=== PATIENT | female | born 1965 | race Two or more races ===

== ENCOUNTER 2019-04-03 12:41 | Emergency (ER) | payer BC ==
[2019-04-03] MEDS ORDERED: ASPIRIN 81 MG TABLET, CHEWABLE PO ONE (13:24)
--- NOTE | 2019-04-03 13:26 | ER Document Report ---
ED Medical Screen (RME) - General Chief Complaint: Palpitations Stated Complaint: POSSIBLE HIGH BLOOD PRESSURE/SHAKING/CHILLS Time Seen by Provider: 04/03/19 13:19 Primary Care Provider: LIZ TYSON MD [Primary Care Provider] - Follow up as needed Mode of Arrival: Ambulatory Information source: Patient Notes: Patient states that she woke up several times with heart pounding sensation this morning. Patient does not describe the pounding sensation is painful. Patient denies dyspnea although states that she will occasionally have to take a deep sighing breaths. Patient also states that her blood pressure has been more elevated than normal and she measured a 147/90 blood pressure at home. Patient does acknowledge a history of a VSD with a heart murmur. Patient has currently been taking Wellbutrin for smoking cessation and is uncertain if her symptoms may be related to this medication. She has been on the Wellbutrin for 2 months now. I have greeted and performed a rapid initial assessment of this patient. A comprehensive ED assessment and evaluation of the patient, analysis of test results and completion of the medical decision making process will be conducted by additional ED providers. TRAVEL OUTSIDE OF THE [place] IN LAST 30 DAYS: No - Related Data Allergies/Adverse Reactions: Penicillins Allergy (Verified 04/03/19 13:18) Physical Exam - Vital signs Vitals: Temp Pulse Resp BP Pulse Ox 98.1 F 77 16 153/85 H 98 04/03/19 12:45 04/03/19 12:45 04/03/19 12:45 04/03/19 12:45 04/03/19 12:45 - Respiratory Respiratory status: No respiratory distress Chest status: Nontender - Cardiovascular Rhythm: Regular Heart sounds: S1 appreciated, S2 appreciated Murmur: Yes Course - Vital Signs Vital signs: Temp Pulse Resp BP Pulse Ox 98.1 F 77 16 153/85 H 98 04/03/19 12:45 04/03/19 12:45 04/03/19 12:45 04/03/19 12:45 04/03/19 12:45 Doctor's Discharge - Discharge Referrals: LIZ TYSON MD [Primary Care Provider] - Follow up as needed
[2019-04-03 13:53] LABS: ABSOLUTE EOSINOPHILS # (AUTO) 0.1 10^3/uL (0.0-0.6); ABSOLUTE LYMPHOCYTES (AUTO) 1.8 10^3/uL (0.5-4.7); ABSOLUTE MONOCYTES (AUTO) 0.4 10^3/uL (0.1-1.4); ABSOLUTE NEUT (AUTO) 3.4 10^3/uL (1.7-8.2); BASOPHILS % (AUTO) 0.7 % (0-2); EOSINOPHILS % (AUTO) 1.1 % (0-6); HEMATOCRIT 40.7 % (36.0-47.0); HEMOGLOBIN 13.9 g/dL (12.0-15.5); LYMPHOCYTES % (AUTO) 31.7 % (13-45); MEAN CORPUSCULAR HEMOGLOBIN 29.8 pg (27.0-33.4); MEAN CORPUSCULAR VOLUME 87 fl (80-97); MONOCYTES % (AUTO) 6.7 % (3-13); PLATELET COUNT 231 10^3/uL (150-450); RED BLOOD COUNT 4.65 10^6/uL (3.72-5.28); RED CELL DISTRIBUTION WIDTH 13.4 % (11.5-14.0); SEGMENTED NEUTROPHILS % (AUTO) 59.8 % (42-78); TOTAL CELLS COUNTED % (AUTO) 100 %; WHITE BLOOD COUNT 5.7 10^3/uL (4.0-10.5)
--- NOTE | 2019-04-03 14:09 | ER Document Report ---
ED General - General Chief Complaint: Palpitations Stated Complaint: POSSIBLE HIGH BLOOD PRESSURE/SHAKING/CHILLS Time Seen by Provider: 04/03/19 13:19 Primary Care Provider: LIZ TYSON MD [NO LOCAL MD] - Follow up as needed Mode of Arrival: Ambulatory Notes: 53-year-old female with history of VSD presents with palpitations and feelings like "I had to take a deep breath" that started this morning. Patient states that he felt like her heart was racing however she checked her heart rate and it was normal. Patient did check her blood pressure which was increased at 147/90 which she states is high for her. Associated chills patient denies any chest pain, shortness of breath, fever, abdominal pain, nausea/vomiting/diarrhea. Patient is followed by Dr. Benton at [facility] for her VSD and states it is "the size of a ballpoint pen." Patient states she had an echo done this past year and was told everything was "all right." Patient states she does not take any medications daily except for multivitamin and only surgical history is ablation of fibroids. TRAVEL OUTSIDE OF THE [place] IN LAST 30 DAYS: No - Related Data Allergies/Adverse Reactions: Penicillins Allergy (Verified 04/03/19 13:18) Past Medical History - General Information source: Patient - Social History Smoking Status: Current Every Day Smoker Family History: Reviewed & Not Pertinent Patient has suicidal ideation: No Patient has homicidal ideation: No Endocrine Medical History: Reports: Hx Diabetes Mellitus Type 2 - borderline Review of Systems - Review of Systems Notes: Constitutional: Negative for fever. HENT: Negative for sore throat. Eyes: Negative for visual changes. Cardiovascular: Positive for palpitations. Negative for chest pain. Respiratory: Negative for shortness of breath. Gastrointestinal: Negative for abdominal pain, vomiting or diarrhea. Genitourinary: Negative for dysuria. Musculoskeletal: Negative for back pain. Skin: Negative for rash. Neurological: Negative for headaches, weakness or numbness. 10 point ROS negative except as marked above and in HPI. Physical Exam - Vital signs Vitals: Temp Pulse Resp BP Pulse Ox 98.1 F 77 16 153/85 H 98 04/03/19 12:45 04/03/19 12:45 04/03/19 12:45 04/03/19 12:45 04/03/19 12:45 - Notes Notes: GENERAL: Well-appearing, well-nourished and in no acute distress. HEAD: Atraumatic, normocephalic. EYES: Extraocular movements intact, sclera anicteric, conjunctiva are normal. NECK: Normal range of motion, supple without lymphadenopathy or JVD. LUNGS: Breath sounds clear to auscultation bilaterally and equal. No wheezes rales or rhonchi. HEART: Regular rate and rhythm without rubs or gallops. Murmur noted. ABDOMEN: Soft, nontender. No guarding, no rebound. No masses appreciated. EXTREMITIES: Normal range of motion, no pitting or edema. No clubbing or cyanosis. NEUROLOGICAL: Cranial nerves II through XII grossly intact. Normal speech, normal gait. PSYCH: Normal mood, normal affect. SKIN: Warm, Dry, normal turgor, no rashes or lesions noted. Course - Re-evaluation Re-evalutation: 04/03/19 53-year-old female with history of VSD presents for heart palpitations and feeling like she has to take a deep breath. Patient denies any other history. Lungs clear to auscultation bilaterally. Regular rate and rhythm with murmur noted. Patient is followed by tube cutter operator at [facility] and had an echo done this past year which was "all right." Patient's EKG shows n ormal sinus rhythm without ST elevation out of rate of 65. Cardiac work-up including TSH initiated. 04/03/19 17:19 Discussed all results with pt and pt's . Also discussed need for 2nd trop and then disposition. Pt voices understanding and agrees with plan of care. 04/03/19 18:15 second troponin is negative. Patient to follow-up with her tube cutter operator, Dr. Benton, in 1 week. Patient also to follow-up with PCP in 3 to 5 days. Strict return precautions given. Discussed all results with patient. All questions/concerns addressed prior to discharge. Patient voices understanding and agrees with plan of care. - Vital Signs Vital signs: Temp Pulse Resp BP Pulse Ox 97.8 F 77 16 125/78 98 04/03/19 17:00 04/03/19 12:45 04/03/19 17:00 04/03/19 17:00 04/03/19 17:00 - Laboratory Result Diagrams: 04/03/19 13:30 04/03/19 13:30 Discharge - Discharge Clinical Impression: Palpitation Condition: Stable Disposition: HOME, SELF-CARE Instructions: Palpitations (Irregular or Rapid Heartrate) ([facility]) Additional Instructions: 2 sets of cardiac enzymes were negative. The rest of your lab work including CBC, CMP, thyroid level and magnesium were also normal. Your chest x-ray was also normal. Your EKG looked reassuring. Please follow-up with your tube cutter operator, Dr. Benton, in 1 week. Please follow-up with your primary care doctor in 3 to 5 days. Return immediately to the ER for any worsening symptoms, including worsening palpitations, chest pain, shortness of breath, nausea/vomiting, abdominal pain, dizziness, fever, or any other symptoms that are concerning to you.
[2019-04-03 14:14] LABS: ALBUMIN 4.4 g/dL (3.5-5.0); ALKALINE PHOSPHATASE 73 U/L (38-126); ANION GAP 11 (5-19); ASPARTATE AMINO TRANSFERASE 26 U/L (14-36); BILIRUBIN,TOTAL 1.1 mg/dL (0.2-1.3); BLOOD UREA NITROGEN 10 mg/dL (7-20); CALCIUM 10.1 mg/dL (8.4-10.2); CARBON DIOXIDE 30 mmol/L (22-30); CHLORIDE 102 mmol/L (98-107); GLUCOSE 109 mg/dL (75-110); POTASSIUM 3.7 mmol/L (3.6-5.0); TOTAL PROTEIN 7.3 g/dL (6.3-8.2)
[2019-04-03 14:28] LABS: APPEARANCE,URINE CLEAR; BILIRUBIN,URINE NEGATIVE (NEGATIVE); COLOR,URINE YELLOW; GLUCOSE, URINE NEGATIVE (NEGATIVE); KETONES,URINE NEGATIVE (NEGATIVE); LEUKOCYTE ESTERASE,URINE NEGATIVE (NEGATIVE); NITRITE,URINE NEGATIVE (NEGATIVE); PROTEIN,URINE NEGATIVE (NEGATIVE); URINE SPECIFIC GRAVITY 1.008; UROBILINOGEN,URINE NEGATIVE mg/dL (<2.0)
--- NOTE | 2019-04-03 15:20 | RADIOLOGY REPORT (SQ) ---
EXAM DESCRIPTION: CHEST 2 VIEWS COMPLETED DATE/TIME: 04/03/2019 1:56 pm REASON FOR STUDY: palpitations COMPARISON: None. EXAM PARAMETERS: NUMBER OF VIEWS: two views TECHNIQUE: Digital Frontal and Lateral radiographic views of the chest acquired. RADIATION DOSE: NA LIMITATIONS: none FINDINGS: LUNGS AND PLEURA: No opacities, masses or pneumothorax. No pleural effusion. MEDIASTINUM AND HILAR STRUCTURES: No masses or contour abnormalities. HEART AND VASCULAR STRUCTURES: Heart normal size. No evidence for failure. BONES: No acute findings. HARDWARE: None in the chest. OTHER: No other significant finding. IMPRESSION: NO ACUTE RADIOGRAPHIC FINDING IN THE CHEST. TECHNICAL DOCUMENTATION: JOB ID: [id number] [employer]- All Rights Reserved Reading location - IP/workstation name: [email or web address]
[2019-04-03 18:17] VITALS: BP 126/79
--- NOTE | 2019-04-03 22:30 | EKG REPORT ---
SEVERITY:- NORMAL ECG - SINUS RHYTHM : Confirmed by: Raysa Andino MD 03-Apr-2019 22:30:00
== END 2019-04-03 18:22 | disposition home or self-care (01) ==
LOC: ER 12:41
DX: R00.2 Palpitations (principal); F17.200 Nicotine dependence, unspecified, uncomplicated; E11.9 Type 2 diabetes mellitus without complications
CPT/HCPCS: 36415; 71046; 80053; 81001; 83735; 84443; 84484; 85025; 93005; 93010; 99284